=== PATIENT | male | born 1995 | race Caucasian/White ===

== ENCOUNTER 2019-01-24 14:52 | Emergency (ER) | payer OTHER ==
[2019-01-24 17:24] VITALS: BP 156/96
--- NOTE | 2019-01-24 17:41 | EDPHY ---
H & P Time Seen by Provider: 01/24/19 16:38 HPI/ROS: HPI Anxiety. 23-year-old male by private vehicle with his friend. This patient is a student [employer]. He does have a history of depression as well as alcohol abuse. He was drinking last night. He took an extended release Adderall tablet. He presents to the emergency department today complaining of feeling anxious, nervous and up tight. He denies any other ingestion. ROS: Constitutional: No fever, no chills. As above. Respiratory: No cough. No shortness of breath. Cardiac: No chest pain, no palpitations. Gastrointestinal: No abdominal pain, no vomiting, no diarrhea. Neurological: No headache. No focal weakness or altered sensation. Past medical history: Depression, alcohol abuse, anxiety, marijuana user, cocaine user. Social history: As above. Student [employer]. Here with his friend. Physical Exam: General Appearance: Alert, mildly anxious, he is not in distress. This patient is responding to questions appropriately and in full sentences. This patient appears well-hydrated and well-nourished. Eyes: Pupils equal and round no pallor or injection. No lid edema, erythema or injection. Respiratory: There are no retractions, lungs are clear to auscultation with good air movement bilaterally. Cardiovascular: Regular rate and rhythm. No murmur. Gastrointestinal: Abdomen is soft and nontender, no masses, bowel sounds normal. No focal tenderness at McBurney's point. No Mcfarland sign. Neurological: Motor sensory function is grossly intact. Cranial nerves are normal. Gait is normal. Skin: Warm and dry, no rashes. Musculoskeletal: Neck is supple and nontender. Extremities are symmetrical. All joints range without pain or impingement. Psychiatric: No agitation. No depression. Database: EKG: Imaging: Procedures: Emergency department course: Triage vital signs reviewed. He is mildly hypertensive. Vital signs are otherwise normal. His presentation is consistent with an anxiety reaction, probably enhanced by taking Adderall extended release last night which is not prescribed to him. His vital signs are unremarkable other than some mild hypertension. He otherwise appears well. I feel he is safe for discharge. He denies any other ingestion. I discussed the liability of alcohol abuse and prescription drug abuse. He feels comfortable going home with his friend after reassurance. Follow-up and return to the emergency department precautions were reviewed with him. All of his questions were answered. He was discharged from the emergency department in good condition with his friend. Differential Diagnosis: The differential diagnosis on this patient includes but is not limited to anxiety reaction, medication reaction, mild alcohol withdrawal. Delirium tremens, cocaine toxicity, other significant sympathomimetic toxidrome unlikely. This represents a partial list of diagnoses considered. These considerations are based on history, physical exam, past history, reassessment and diagnostic testing. Smoking Status: Current some day smoker Constitutional: Initial Vital Signs Temperature (C) 36.4 C 01/24/19 14:55 Heart Rate 67 01/24/19 14:55 Respiratory Rate 16 01/24/19 14:55 Blood Pressure 136/95 H 01/24/19 14:55 O2 Sat (%) 95 01/24/19 14:55 O2 Delivery Mode Room Air Allergies/Adverse Reactions: No Known Allergies Allergy (Verified 01/24/19 14:55) Departure - Departure Disposition: Home, Routine, Self-Care Clinical Impression: Anxiety Condition: Good Additional Instructions: Read and follow provided instructions. Follow-up with your primary care physician in 1-2 days for re-evaluation. You can discuss treatment for anxiety and substance abuse with your primary care physician. Do not drink alcohol. Do not take prescription medications. Stay away from stimulants and other energy drinks and caffeine. Return to the emergency department for worsening symptoms, chest pain, heart palpitations, difficulty breathing, lightheadedness or other serious concerns. Referrals: NONE *PRIMARY CARE P,. [Primary Care Provider] - As per Instructions [facility],. [Clinic] - As per Instructions
== END 2019-01-24 17:50 | disposition home or self-care (01) ==
DX: F41.9 Anxiety disorder, unspecified (principal); F10.10 Alcohol abuse, uncomplicated; Z79.899 Other long term (current) drug therapy